=== PATIENT | male | born 1965 | race Hispanic/Latino ===

== ENCOUNTER 2017-09-25 10:16 | Emergency (ER) | payer OTHER ==
[2017-09-25] MEDS ORDERED: Sodium Chloride 0.9% 1,000 ML IV ONE ×3 (10:44→13:33)
[2017-09-25] MEDS ORDERED: Ketorolac 30 MG/ML SDV IVPUSH ONE (10:44)
[2017-09-25] MEDS ORDERED: Piperacillin/Tazobactam 3.375 GM in Sodium Chloride 0.9% 50 ML IV ONE (11:20)
--- NOTE | 2017-09-25 11:31 | EDM.PDOC ---
ED HPI GENERAL MEDICAL PROBLEM - General Chief Complaint: Fever Stated Complaint: LOW BACK PAIN Time Seen by Provider: 09/25/17 10:43 Source of Information: Reports: Patient, Family History Limitations: Reports: No Limitations - History of Present Illness INITIAL COMMENTS - FREE TEXT/NARRATIVE: HISTORY AND PHYSICAL: History of present illness: Patient is a 52-year-old male who is brought to the emergency room by his daughter with complaints of fever, chills and low back pain. Patient is Kazakh speaking and declines Jenny at this time, the daughter is translating. The daughter reports that he recently moved here from [place] as she was taking care of himself there, was recently admitted for respiratory failure and DKA. She states that he moved here to be with her to help take care of him. Over the past 24 hours she has noticed he has been shivering and complaining of low back pain. Denies any headache, cough, chest pain or shortness of breath. He denies any abdominal pain, nausea, vomiting, diarrhea or constipation. He has a past medical history of hypertension, elevated cholesterol, type 2 diabetes (Insulin), congestive heart failure, DKA, and newly diagnosed pancreatic mass. Review of systems: As per history of present illness and below otherwise all systems reviewed and negative. Past medical history: As per history of present illness and as reviewed below otherwise noncontributory. Surgical history: As per history of present illness and as reviewed below otherwise noncontributory. Social history: No reported history of drug or alcohol abuse. Family history: As per history of present illness and as reviewed below otherwise noncontributory. Physical exam: General: Well-developed and well-nourished 52-year-old male. Alert and oriented. Appears mildly unwell but in no acute distress. HEENT: Atraumatic, normocephalic, pupils equal and reactive bilaterally, negative for conjunctival pallor or scleral icterus, mucous membranes moist, throat clear, neck supple, nontender, trachea midline. No drooling or trismus noted. No meningeal signs Lungs: Clear to auscultation, breath sounds equal bilaterally, chest nontender. Heart: S1S2, regular rate and rhythm without overt murmur Abdomen: Soft, nondistended, mild tenderness throughout. Negative for masses or hepatosplenomegaly. Negative for costovertebral tenderness. Pelvis: Stable nontender. Genitourinary: This was done with a chaparone at the bedside and with consent. The external genitalia appears within normal limits. Uncircumsized. There is no erythema, swelling or rashes noted. Rectal: This was done with a chaparone at the bedside and with consent. No hemorrhoids noted. Good rectal tone. Negative for Hemoccult stool. Patient tolerated well. Skin: Intact, warm, dry. No lesions or rashes noted. Extremities: Atraumatic, negative for cords or calf pain. Neurovascular unremarkable. Neuro: Awake, alert, oriented. Cranial nerves II through XII unremarkable. Cerebellum unremarkable. Motor and sensory unremarkable throughout. Exam nonfocal. Notes: Upon getting further history from the patient and daughter it sounds like within the last 3 weeks she has been newly diagnosed with congestive heart failure (placed on diuretics), was admitted with DKA (newly placed on insulin), had a CT scan of this pancreatic mass, and had an infection of his "inside my penis" (completed antibiotics). She states that she has not received the results of the CT scan. He currently does not have a primary care provider as she is new to our area. 1200: WBC is 16.35 (H). Trying to find source of infection. R/o sepsis. 1330: Patient returned from CT/Xray at this time. BP 89/45, states he feels better but would like to eat. Waiting for CT results. BS 39; 1 amp of D50 ordered. 1333: CT shows: Tail of the pancreas with low attenuation suggesting fluid and calcification consistent with prior chronic pancreatitis. He is unable to rule out infection. Dr. Goodrich was consulted on this case. He states this patient would benefit from going to a higher level of care. 1335: Dr. Groves, ER physician, was consulted on this case. He is agreeable to accepting this patient for further evaluation and management. Patient will be flown via [facility] flight crew. Diagnostics: CBC, CMP, Lactic Acid, EKG, CXR, CT abd/pelvis, troponin, BNP, oxygen, blood cultures Therapeutics: NS, Toradol, Zosyn, Vancomycin Impression: Sepsis Possible Pancreatis Abscess Plan: Trasnfer to [place] via Helicopter for further care/management Definitive disposition and diagnosis as appropriate pending reevaluation and review of above. Onset: Today Duration: Day(s): Location: Reports: Back Associated Symptoms: Reports: Fever/Chills. Denies: Confusion, Chest Pain, Cough, cough w sputum, Diaphoresis, Headaches, Loss of Appetite, Malaise, Nausea /Vomiting, Rash, Seizure, Shortness of Breath, Syncope, Weakness Treatments BR[employer]NER: Reports: Other (see below) (Monitoring blood sugar) - Related Data Allergies Allergy/AdvReac Type Severity Reaction Status Date / Time No Known Allergies Allergy Verified 09/25/17 10:38 Home Meds: Home Meds Albuterol [Ventolin HFA] 2 puff IH Q4H 09/25/17 [History] Furosemide 40 mg PO BID 09/25/17 [History] Insulin Detemir [Levemir] 30 unit SUBCUT BEDTIME 09/25/17 [History] Insulin Lispro [Humalog Kwikpen U-100] 8 units SQ TIDMEALS 09/25/17 [History] Isoniazid 300 mg PO DAILY 09/25/17 [History] Pantoprazole Sodium 40 mg PO BID 09/25/17 [History] Pyridoxine HCl [Vitamin B-6] 25 mg PO DAILY 09/25/17 [History] Sucralfate 1 gm PO QID 09/25/17 [History] atorvaSTATin [Lipitor] 40 mg PO DAILY 09/25/17 [History] metFORMIN [Glucophage] 850 mg PO TID 09/25/17 [History] Past Medical History Cardiovascular History: Reports: High Cholesterol, Hypertension Respiratory History: Reports: Other (See Below) Other Respiratory History: recent respiratory failure Gastrointestinal History: Reports: GERD Other Gastrointestinal History: has a pancreatic mass, unknown results of the scan he had done 3 weeks ago. Endocrine/Metabolic History: Reports: Diabetes, Type II - Infectious Disease History Infectious Disease History: Reports: Chicken Pox Social & Family History - Family History Family Medical History: Noncontributory - Tobacco Use Smoking Status *Q: Never Smoker - Caffeine Use Caffeine Use: Reports: None - Recreational Drug Use Recreational Drug Use: No ED ROS GENERAL - Review of Systems Review Of Systems: ROS reveals no pertinent complaints other than HPI. ED EXAM, GENERAL - Physical Exam Exam: See Below (See dictation) Course - Vital Signs Last Recorded V/S: Last Vital Signs Temp 100.0 F 09/25/17 12:25 Pulse 89 09/25/17 12:25 Resp 18 09/25/17 12:25 BP 98/56 L 09/25/17 12:25 Pulse Ox 97 09/25/17 12:25 - Orders/Labs/Meds Orders: Active Orders 24 hr Category Date Time Status EKG Documentation Completion [RC] STAT Care 09/25/17 11:19 Active Oxygen Therapy, ED [RC] ASDIRECTED Care 09/25/17 11:20 Active CULTURE BLOOD [BC] Stat Lab 09/25/17 10:47 Received CULTURE BLOOD [BC] Stat Lab 09/25/17 11:02 Received UA W/MICROSCOPIC [URIN] Stat Lab 09/25/17 10:59 Ordered Sodium Chloride 0.9% [Normal Saline] 1,000 ml Med 09/25/17 11:19 Active IV STAT Sodium Chloride 0.9% [Normal Saline] 1,000 ml Med 09/25/17 13:33 Active IV STAT Vancomycin [Vancocin] 1 gm Med 09/25/17 13:33 Active Sodium Chloride 0.9% [Normal Saline] 250 ml IV ONETIME Blood Culture x2 Reflex Set [OM.PC] Stat Oth 09/25/17 10:44 Ordered Medication Orders Sodium Chloride (Normal Saline) 1,000 mls @ 250 mls/hr IV STAT ONE Stop: 09/25/17 15:18 Last Infusion: 09/25/17 12:15 Dose: 999 mls/hr Admin: 09/25/17 11:43 Dose: 250 mls/hr Sodium Chloride (Normal Saline) 1,000 mls @ 999 mls/hr IV STAT ONE Stop: 09/25/17 14:33 Last Admin: 09/25/17 13:48 Dose: 999 mls/hr Vancomycin HCl 1 gm/ Sodium (Chloride) 250 mls @ 250 mls/hr IV ONETIME ONE Stop: 09/25/17 14:32 Last Admin: 09/25/17 13:47 Dose: 250 mls/hr Labs: Laboratory Tests 09/25/17 09/25/17 09/25/17 Range/Units 10:47 10:47 10:47 WBC 16.35 H (4.0-11.0) K/uL RBC 3.62 L (4.50-5.90) M/uL Hgb 10.4 L (13.0-17.0) g/dL Hct 32.3 L (38.0-50.0) % MCV 89.2 (80.0-98.0) fL MCH 28.7 (27.0-32.0) pg MCHC 32.2 (31.0-37.0) g/dL RDW Std Deviation 49.7 (28.0-62.0) fl RDW Coeff of Randee 15 (11.0-15.0) % Plt Count 304 (150-400) K/uL MPV 10.00 (7.40-12.00) fL Neut % (Auto) 87.5 H (48.0-80.0) % Lymph % (Auto) 8.2 L (16.0-40.0) % Levy % (Auto) 4.0 (0.0-15.0) % Eos % (Auto) 0.2 (0.0-7.0) % Baso % (Auto) 0.1 (0.0-1.5) % Neut # (Auto) 14.3 H (1.4-5.7) K/uL Lymph # (Auto) 1.3 (0.6-2.4) K/uL Levy # (Auto) 0.7 (0.0-0.8) K/uL Eos # (Auto) 0.0 (0.0-0.7) K/uL Baso # (Auto) 0.0 (0.0-0.1) K/uL Nucleated RBC % 0.0 /100WBC Nucleated RBCs # 0 K/uL Lactate 1.8 (0.20-2.00) mmol/L Sodium 134 L (136-148) mmol/L Potassium 5.2 H (3.5-5.1) mmol/L Chloride 97 L (98-107) mmol/L Carbon Dioxide 30.6 (21.0-32.0) mmol/L BUN 25 H (7.0-18.0) mg/dL Creatinine 1.0 (0.8-1.3) mg/dL Est Cr Clr Drug Dosing 70.71 mL/min Estimated GFR (MDRD) > 60.0 ml/min Glucose 236 H (74-106) mg/dL POC Glucose (60-110) mg/dL Calcium 8.3 L (8.5-10.1) mg/dL Total Bilirubin 0.3 (0.2-1.0) mg/dL AST 39 H (15-37) IU/L ALT 61 (14-63) IU/L Alkaline Phosphatase 145 H (46-116) U/L Troponin I (0.000-0.056) ng/mL B-Natriuretic Peptide (<100) PG/ML Total Protein 6.6 (6.4-8.2) g/dL Albumin 2.7 L (3.4-5.0) g/dL Globulin 3.9 H (2.0-3.5) g/dL Albumin/Globulin Ratio 0.7 L (1.3-2.8) Amylase (25-115) U/L Lipase (73-393) U/L Urine Color Urine Appearance Urine pH (5.0-8.0) Ur Specific Range (1.001-1.035) Urine Protein (NEGATIVE) mg/dL Urine Glucose (UA) (NEGATIVE) mg/dL Urine Ketones (NEGATIVE) mg/dL Urine Occult Blood (NEGATIVE) Urine Nitrite (NEGATIVE) Urine Bilirubin (NEGATIVE) Urine Urobilinogen (<2.0) EU/dL Ur Leukocyte Esterase (NEGATIVE) Urine RBC (0-2/HPF) Urine WBC (0-5/HPF) Ur Epithelial Cells (NONE-FEW) Urine Bacteria (NEGATIVE) 09/25/17 09/25/17 09/25/17 Range/Units 10:47 10:47 10:59 WBC (4.0-11.0) K/uL RBC (4.50-5.90) M/uL Hgb (13.0-17.0) g/dL Hct (38.0-50.0) % MCV (80.0-98.0) fL MCH (27.0-32.0) pg MCHC (31.0-37.0) g/dL RDW Std Deviation (28.0-62.0) fl RDW Coeff of Randee (11.0-15.0) % Plt Count (150-400) K/uL MPV (7.40-12.00) fL Neut % (Auto) (48.0-80.0) % Lymph % (Auto) (16.0-40.0) % Levy % (Auto) (0.0-15.0) % Eos % (Auto) (0.0-7.0) % Baso % (Auto) (0.0-1.5) % Neut # (Auto) (1.4-5.7) K/uL Lymph # (Auto) (0.6-2.4) K/uL Levy # (Auto) (0.0-0.8) K/uL Eos # (Auto) (0.0-0.7) K/uL Baso # (Auto) (0.0-0.1) K/uL Nucleated RBC % /100WBC Nucleated RBCs # K/uL Lactate (0.20-2.00) mmol/L Sodium (136-148) mmol/L Potassium (3.5-5.1) mmol/L Chloride (98-107) mmol/L Carbon Dioxide (21.0-32.0) mmol/L BUN (7.0-18.0) mg/dL Creatinine (0.8-1.3) mg/dL Est Cr Clr Drug Dosing mL/min Estimated GFR (MDRD) ml/min Glucose (74-106) mg/dL POC Glucose (60-110) mg/dL Calcium (8.5-10.1) mg/dL Total Bilirubin (0.2-1.0) mg/dL AST (15-37) IU/L ALT (14-63) IU/L Alkaline Phosphatase (46-116) U/L Troponin I < 0.050 (0.000-0.056) ng/mL B-Natriuretic Peptide 182 H (<100) PG/ML Total Protein (6.4-8.2) g/dL Albumin (3.4-5.0) g/dL Globulin (2.0-3.5) g/dL Albumin/Globulin Ratio (1.3-2.8) Amylase 93 (25-115) U/L Lipase 77 (73-393) U/L Urine Color YELLOW Urine Appearance CLEAR Urine pH 7.0 (5.0-8.0) Ur Specific Range 1.010 (1.001-1.035) Urine Protein NEGATIVE (NEGATIVE) mg/dL Urine Glucose (UA) NEGATIVE (NEGATIVE) mg/dL Urine Ketones NEGATIVE (NEGATIVE) mg/dL Urine Occult Blood NEGATIVE (NEGATIVE) Urine Nitrite NEGATIVE (NEGATIVE) Urine Bilirubin NEGATIVE (NEGATIVE) Urine Urobilinogen 0.2 (<2.0) EU/dL Ur Leukocyte Esterase NEGATIVE (NEGATIVE) Urine RBC 0-1 (0-2/HPF) Urine WBC 0-1 (0-5/HPF) Ur Epithelial Cells RARE (NONE-FEW) Urine Bacteria RARE (NEGATIVE) 09/25/17 Range/Units 13:35 WBC (4.0-11.0) K/uL RBC (4.50-5.90) M/uL Hgb (13.0-17.0) g/dL Hct (38.0-50.0) % MCV (80.0-98.0) fL MCH (27.0-32.0) pg MCHC (31.0-37.0) g/dL RDW Std Deviation (28.0-62.0) fl RDW Coeff of Randee (11.0-15.0) % Plt Count (150-400) K/uL MPV (7.40-12.00) fL Neut % (Auto) (48.0-80.0) % Lymph % (Auto) (16.0-40.0) % Levy % (Auto) (0.0-15.0) % Eos % (Auto) (0.0-7.0) % Baso % (Auto) (0.0-1.5) % Neut # (Auto) (1.4-5.7) K/uL Lymph # (Auto) (0.6-2.4) K/uL Levy # (Auto) (0.0-0.8) K/uL Eos # (Auto) (0.0-0.7) K/uL Baso # (Auto) (0.0-0.1) K/uL Nucleated RBC % /100WBC Nucleated RBCs # K/uL Lactate (0.20-2.00) mmol/L Sodium (136-148) mmol/L Potassium (3.5-5.1) mmol/L Chloride (98-107) mmol/L Carbon Dioxide (21.0-32.0) mmol/L BUN (7.0-18.0) mg/dL Creatinine (0.8-1.3) mg/dL Est Cr Clr Drug Dosing mL/min Estimated GFR (MDRD) ml/min Glucose (74-106) mg/dL POC Glucose 39 L (60-110) mg/dL Calcium (8.5-10.1) mg/dL Total Bilirubin (0.2-1.0) mg/dL AST (15-37) IU/L ALT (14-63) IU/L Alkaline Phosphatase (46-116) U/L Troponin I (0.000-0.056) ng/mL B-Natriuretic Peptide (<100) PG/ML Total Protein (6.4-8.2) g/dL Albumin (3.4-5.0) g/dL Globulin (2.0-3.5) g/dL Albumin/Globulin Ratio (1.3-2.8) Amylase (25-115) U/L Lipase (73-393) U/L Urine Color Urine Appearance Urine pH (5.0-8.0) Ur Specific Range (1.001-1.035) Urine Protein (NEGATIVE) mg/dL Urine Glucose (UA) (NEGATIVE) mg/dL Urine Ketones (NEGATIVE) mg/dL Urine Occult Blood (NEGATIVE) Urine Nitrite (NEGATIVE) Urine Bilirubin (NEGATIVE) Urine Urobilinogen (<2.0) EU/dL Ur Leukocyte Esterase (NEGATIVE) Urine RBC (0-2/HPF) Urine WBC (0-5/HPF) Ur Epithelial Cells (NONE-FEW) Urine Bacteria (NEGATIVE) Meds: Medications Generic Name Dose Route Start Last Admin Trade Name Freq PRN Reason Stop Dose Admin Sodium Chloride 1,000 mls @ 250 mls/hr 09/25/17 11:19 09/25/17 12:15 Normal Saline IV 09/25/17 15:18 999 mls/hr STAT ONE Infusion Sodium Chloride 1,000 mls @ 999 mls/hr 09/25/17 13:33 09/25/17 13:48 Normal Saline IV 09/25/17 14:33 999 mls/hr STAT ONE Administration Vancomycin HCl 1 gm/ Sodium 250 mls @ 250 mls/hr 09/25/17 13:33 09/25/17 13: 47 Chloride IV 09/25/17 14:32 250 mls/hr ONETIME ONE Administration Discontinued Medications Generic Name Dose Route Start Last Admin Trade Name Freq PRN Reason Stop Dose Admin Dextrose/Water 50 ml 09/25/17 13:36 09/25/17 13:38 Dextrose 50% In Water IVPUSH 09/25/17 13:37 50 ml ONETIME ONE Administration Dextrose/Water Confirm 09/25/17 13:37 09/25/17 13:48 Dextrose 50% In Water Administered 09/25/17 13:38 Not Given Dose 50 ml .ROUTE .STK-MED ONE Sodium Chloride 1,000 mls @ 999 mls/hr 09/25/17 10:44 09/25/17 10:58 Normal Saline IV 09/25/17 11:44 999 mls/hr STAT ONE Administration Piperacillin Sod/Tazobactam 50 mls @ 100 mls/hr 09/25/17 11:20 09/25/17 11:43 Sod 3.375 gm/ Sodium Chloride IV 09/25/17 11:49 100 mls/hr ONETIME ONE Administration Ketorolac Tromethamine 30 mg 09/25/17 10:44 09/25/17 10:58 Toradol IVPUSH 09/25/17 10:45 30 mg ONETIME ONE Administration Departure - Departure Time of Disposition: 14:02 Disposition: DC/Tfer to Other 70 Clinical Impression: Pancreatic abscess Sepsis Qualifiers: Sepsis type: sepsis due to unspecified organism Qualified Code(s): A41.9 - Sepsis, unspecified organism - Discharge Information Referrals: PCP,None [Primary Care Provider] - Forms: ED Department Discharge - My Orders Last 24 Hours: My Active Orders 09/25/17 10:44 Blood Culture x2 Reflex Set [OM.PC] Stat 09/25/17 10:47 CULTURE BLOOD [BC] Stat 09/25/17 10:59 UA W/MICROSCOPIC [URIN] Stat 09/25/17 11:02 CULTURE BLOOD [BC] Stat 09/25/17 11:19 EKG Documentation Completion [RC] STAT Sodium Chloride 0.9% [Normal Saline] 1,000 ml IV STAT 09/25/17 11:20 Oxygen Therapy, ED [RC] ASDIRECTED 09/25/17 13:33 Sodium Chloride 0.9% [Normal Saline] 1,000 ml IV STAT Vancomycin [Vancocin] 1 gm Sodium Chloride 0.9% [Normal Saline] 250 ml IV ONETIME - Assessment/Plan Last 24 Hours: My Active Orders 09/25/17 10:44 Blood Culture x2 Reflex Set [OM.PC] Stat 09/25/17 10:47 CULTURE BLOOD [BC] Stat 09/25/17 10:59 UA W/MICROSCOPIC [URIN] Stat 09/25/17 11:02 CULTURE BLOOD [BC] Stat 09/25/17 11:19 EKG Documentation Completion [RC] STAT Sodium Chloride 0.9% [Normal Saline] 1,000 ml IV STAT 09/25/17 11:20 Oxygen Therapy, ED [RC] ASDIRECTED 09/25/17 13:33 Sodium Chloride 0.9% [Normal Saline] 1,000 ml IV STAT Vancomycin [Vancocin] 1 gm Sodium Chloride 0.9% [Normal Saline] 250 ml IV ONETIME
[2017-09-25 11:55] LABS: CHLORIDE,CL 97 mmol/L (98-107); SODIUM,NA 134 mmol/L (136-148)
--- NOTE | 2017-09-25 13:33 | CR ---
PA and lateral chest Clinical history: Shortness of breath Comparison: None. Findings: The gastric angles are clear. The cardiac mediastinal is normal and the lungs are clear. Impression: Normal chest
[2017-09-25] MEDS ORDERED: 50% Dextrose in Water 50 ML Syringe IVPUSH ONE (13:36)
[2017-09-25] MEDS ORDERED: 50% Dextrose in Water 50 ML Syringe ONE (13:37)
--- NOTE | 2017-09-25 13:44 | CT ---
ET scan of the abdomen and pelvis Clinical history: Fever of 103 with back pain Comparison: None. Findings: The lung bases are clear of significant consolidation with minor crowding of markings at the lung bas es posteromedially bilaterally. The liver demonstrates a prominent cyst in the right hepatic lobe of no consequence. Gallbladder is i n situ without calcified stones visible and the pancreas demonstrates some calcifications distally in the tail of the pancreas likely reflecting prior pancreatitis. The gland is swollen at the tail and there is an area within this region of low density suggesting fluid. There is no dilation of the panc reatic duct. No significant edema is present around the pancreas, but abscess is not excluded. The fl uid collection does not have a mature border to suggest a pseudocyst. The kidneys are within normal limits and retroperitoneum is normal. No bowel abnormality is identifie d. Grass getting to low abdomen into the pelvis demonstrates no pelvic mass or fluid collection. Sple en is normal. Skeletal images demonstrate no aggressive bony lesions. There is degenerative arthropathy of the lowe r lumbar spine. Impression: Swollen tail of the pancreas with low attenuation suggesting fluid and calcifications con sistent with prior chronic pancreatitis. Infection is not excluded. No other source of back pain iden tified. A pancreatic cystadenoma or cystadenocarcinoma could have a similar appearance/correlate clin ically
[2017-09-25] MEDS ORDERED: Iopamidol 755 MG/ML 500 ML Multipack Bottle IVPUSH STA (17:06)
== END 2017-09-25 15:10 | disposition other institution (70) ==
LOC: MW.ED 10:16
DX: A41.9 Sepsis, unspecified organism (principal); K85.90 Acute pancreatitis without necrosis or infection, unspecified; I11.0 Hypertensive heart disease with heart failure; E78.00 Pure hypercholesterolemia, unspecified; I50.9 Heart failure, unspecified; E11.9 Type 2 diabetes mellitus without complications; Z79.4 Long term (current) use of insulin
CPT/HCPCS: 71046; 74178; 80053; 81001; 82150; 82962; 83605; 83690; 83880; 84484; 85025; 87040; 93005; 96361; 96365; 96375; 99285; J1885; J2543; J3370; J7040; J7050; J7060; Q9967

== ENCOUNTER 2017-10-05 19:32 | Observation (INO) | payer MEDICAID, OTHER ==
[2017-10-05] MEDS ORDERED: Aspirin 81 MG Tab.Chew PO ONE (19:56)
--- NOTE | 2017-10-05 19:58 | EDM.PDOC ---
ED HPI GENERAL MEDICAL PROBLEM - General Chief Complaint: Respiratory Problem Stated Complaint: COUGH Time Seen by Provider: 10/05/17 19:50 Source of Information: Reports: Patient - History of Present Illness INITIAL COMMENTS - FREE TEXT/NARRATIVE: HISTORY AND PHYSICAL: History of present illness: [He is primarily Danish-speaking, and daughter serves as senior [employer] network engineer. Comes to the emergency room complaining of pain to his mid chest and mid back for the past 2 days. He feels weaker than usual and has had some episodes of dizziness. He denies falls. He describes a heavy feeling in the center of his chest and shortness of breath. He does not have any difficulty breathing or taking a deep breath. He he moved to the area within the past month with diagnoses of hypertension, hypercholesterolemia, and was newly diagnosed with insulin- dependent type 2 diabetes, CHF and a pancreatic mass. was hospitalized in [place] approximately one week ago for sepsis and a possible pancreatic abscess. Daughter reports that he was evaluated approximately 3 weeks ago for cough and sputum production was not started on any treatment. In the last couple of days he received a phone call from a clinic in [place] reporting that his sputum grew out gram-positive cocci in pairs and clusters. He has not been treated for this with any antibiotics. Daughter reports a history of latent tuberculosis. Was diagnosed w/ a pancreatic mass recently. He is scheduled to see oncology in the next couple of weeks. DeniesFever or chills. No recent URI symptoms. No abd pain, nausea, vomiting, constipation or diarrhea. Denies blood in his urine and difficulty urinating. No blood in his stool or black tarry stools. Urination and bowel movements are normal. Review of systems: As per history of present illness and below otherwise all systems reviewed and negative. Past medical history: As per history of present illness and as reviewed below otherwise noncontributory. Surgical history: As per history of present illness and as reviewed below otherwise noncontributory. Social history: No reported history of drug or alcohol abuse. Family history: As per history of present illness and as reviewed below otherwise noncontributory. Physical exam: HEENT: Atraumatic, normocephalic. PERRLA. Oral mucous membranes are pink and moist. Neck supple, no lymphadenopathy. Lungs: Clear to auscultation, breath sounds equal bilaterally. Heart: S1S2, regular, negative for clicks, rubs, or JVD. Rate 105 Abdomen: Bowel sounds are normoactive throughout. Soft, nondistended, nontender. Negative for masses. Negative for costovertebral tenderness. Pelvis: Stable nontender. Genitourinary: Deferred. Rectal: Sphincter tone. Brown stool in colon. SFOB Negative Extremities: Atraumatic, no swelling present. Neurovascular unremarkable. Neuro: Awake, alert, oriented. Motor and sensory unremarkable throughout. Exam nonfocal. Diagnostics: [CBC, CMP, urinalysis, chest x-ray, sputum culture, troponin] Impression: [symptomatic anemia] Plan: [Chest x-ray shows no infiltrates or abnormalities. Hemoglobin 8.7. White blood cell 11.2. Troponin is negative. BUN 43, creatinine 1.5. Patient's condition is discussed with Dr. Charlene Sanon who agrees to palpation and for observation with telemetry. The patient and his daughter are in agreement with today's plan.] Definitive disposition and diagnosis as appropriate pending reevaluation and review of above. chest Pain Score (Numeric/FACES): 6 - Related Data Allergies Allergy/AdvReac Type Severity Reaction Status Date / Time No Known Allergies Allergy Verified 10/05/17 19:50 Home Meds: Home Meds Albuterol [Ventolin HFA] 2 puff IH Q4H 09/25/17 [History] Furosemide 40 mg PO BID 09/25/17 [History] Insulin Detemir [Levemir] 30 unit SUBCUT BEDTIME 09/25/17 [History] Insulin Lispro [Humalog Kwikpen U-100] 8 units SQ TIDMEALS 09/25/17 [History] Isoniazid 300 mg PO DAILY 09/25/17 [History] Pantoprazole Sodium 40 mg PO BID 09/25/17 [History] Pyridoxine HCl [Vitamin B-6] 25 mg PO DAILY 09/25/17 [History] Sucralfate 1 gm PO QID 09/25/17 [History] atorvaSTATin [Lipitor] 40 mg PO DAILY 09/25/17 [History] metFORMIN [Glucophage] 850 mg PO TID 09/25/17 [History] Past Medical History Cardiovascular History: Reports: High Cholesterol, Hypertension, Other (See Below) Other Cardiovascular History: CHF Respiratory History: Reports: Other (See Below) Other Respiratory History: recent respiratory failure Gastrointestinal History: Reports: GERD Other Gastrointestinal History: has a pancreatic mass, unknown results of the scan he had done 3 weeks ago. Endocrine/Metabolic History: Reports: Diabetes, Type II - Infectious Disease History Infectious Disease History: Reports: Chicken Pox Social & Family History - Family History Family Medical History: Noncontributory - Tobacco Use Smoking Status *Q: Never Smoker - Caffeine Use Caffeine Use: Reports: None - Recreational Drug Use Recreational Drug Use: No ED ROS GENERAL - Review of Systems Review Of Systems: ROS reveals no pertinent complaints other than HPI. ED EXAM, GENERAL - Physical Exam Exam: See Below Course - Vital Signs Last Recorded V/S: Last Vital Signs Temp 98.9 F 10/05/17 21:17 Pulse 107 H 10/05/17 21:17 Resp 17 10/05/17 21:17 BP 139/82 10/05/17 21:17 Pulse Ox 97 10/05/17 21:17 - Orders/Labs/Meds Orders: Active Orders 24 hr Category Date Time Status Orthostatic Vital Signs [RC] ASDIRECTED Care 10/05/17 21:38 Active Chest 2V [CR] Stat Exams 10/05/17 19:56 Taken CULTURE SPUTUM + SMEAR [RM] Stat Lab 10/05/17 20:04 Ordered Labs: Laboratory Tests 10/05/17 10/05/17 Range/Units 20:10 20:10 WBC 11.26 H (4.0-11.0) K/uL RBC 2.97 L (4.50-5.90) M/uL Hgb 8.7 L (13.0-17.0) g/dL Hct 26.7 L (38.0-50.0) % MCV 89.9 (80.0-98.0) fL MCH 29.3 (27.0-32.0) pg MCHC 32.6 (31.0-37.0) g/dL RDW Std Deviation 48.9 (28.0-62.0) fl RDW Coeff of [place] 15 (11.0-15.0) % Plt Count 422 H (150-400) K/uL MPV 9.50 (7.40-12.00) fL Neut % (Auto) 63.7 (48.0-80.0) % Lymph % (Auto) 27.6 (16.0-40.0) % [place] % (Auto) 6.9 (0.0-15.0) % Eos % (Auto) 1.5 (0.0-7.0) % Baso % (Auto) 0.3 (0.0-1.5) % Neut # (Auto) 7.2 H (1.4-5.7) K/uL Lymph # (Auto) 3.1 H (0.6-2.4) K/uL [place] # (Auto) 0.8 (0.0-0.8) K/uL Eos # (Auto) 0.2 (0.0-0.7) K/uL Baso # (Auto) 0.0 (0.0-0.1) K/uL Nucleated RBC % 0.0 /100WBC Nucleated RBCs # 0 K/uL Sodium 137 (136-148) mmol/L Potassium 4.6 (3.5-5.1) mmol/L Chloride 102 (98-107) mmol/L Carbon Dioxide 25.6 (21.0-32.0) mmol/L BUN 43 H (7.0-18.0) mg/dL Creatinine 1.5 H (0.8-1.3) mg/dL Est Cr Clr Drug Dosing 47.14 mL/min Estimated GFR (MDRD) 48.8 ml/min Glucose 133 H (74-106) mg/dL Calcium 8.4 L (8.5-10.1) mg/dL Total Bilirubin 0.1 L (0.2-1.0) mg/dL AST 16 (15-37) IU/L ALT 27 (14-63) IU/L Alkaline Phosphatase 109 (46-116) U/L Troponin I < 0.050 (0.000-0.056) ng/mL Total Protein 7.4 (6.4-8.2) g/dL Albumin 2.4 L (3.4-5.0) g/dL Globulin 5.0 H (2.0-3.5) g/dL Albumin/Globulin Ratio 0.5 L (1.3-2.8) Meds: Medications Discontinued Medications Generic Name Dose Route Start Last Admin Trade Name Freq PRN Reason Stop Dose Admin Aspirin 324 mg 10/05/17 19:56 10/05/17 20:05 Aspirin PO 10/05/17 19:57 324 mg ONETIME ONE Administration Departure - Departure Time of Disposition: 21:40 Disposition: Refer to Observation Condition: Good Clinical Impression: Anemia - Discharge Information - My Orders Last 24 Hours: My Active Orders 10/05/17 19:56 Chest 2V [CR] Stat 10/05/17 20:04 CULTURE SPUTUM + SMEAR [RM] Stat 10/05/17 21:38 Orthostatic Vital Signs [RC] ASDIRECTED - Assessment/Plan Last 24 Hours: My Active Orders 10/05/17 19:56 Chest 2V [CR] Stat 10/05/17 20:04 CULTURE SPUTUM + SMEAR [RM] Stat 10/05/17 21:38 Orthostatic Vital Signs [RC] ASDIRECTED
[2017-10-05 20:53] LABS: CHLORIDE,CL 102 mmol/L (98-107); SODIUM,NA 137 mmol/L (136-148)
[2017-10-05] MEDS ORDERED: Pantoprazole 40 MG Vial IVPUSH ONE (23:57)
[2017-10-05] MEDS ORDERED: Alum Hydrox/Mag Hydrox/Simeth 15 ML, Lidocaine 2% 5 ML PO ONE ×2 (23:57)
[2017-10-06] MEDS ORDERED: Ondansetron 4 MG Tab.DIS PO PRN
[2017-10-06 02:43] LABS: CHLORIDE,CL 103 mmol/L (98-107); SODIUM,NA 137 mmol/L (136-148)
[2017-10-06] MEDS ORDERED: Acetaminophen 325 MG Tab PO PRN (03:26)
[2017-10-06] MEDS: Sodium Chloride 0.9% 1,000 ML IV SCH ×2 (04:57→11:43)
[2017-10-06] MEDS: Insulin Aspart 100 Units/ML 3 ML Pen SUBCUT SCH ×2 (07:49→12:20)
--- NOTE | 2017-10-06 09:18 | PCM.HP ---
H&P History of Present Illness - General Date of Service: 10/06/17 Admit Problem/Dx: Admission Diagnosis/Problem Admission Diagnosis/Problem Anemia Source of Information: Patient, Family History Limitations: Reports: Language Barrier - History of Present Illness Initial Comments - Free Text/Narative: This is a 52M with a past hx of recent episode of DKA, incidentally found pancreatic mass on CT requiring further work up, that presents to the ER complaining of chest tightness x3 days as per daughter. Also has a past hx of HLD, Latent TB, GERD. Pain was located centrally, non-radiating, worsened with a breath. No fever chills nausea or vomiting. No recent illnesses. No new medications. At the time of evaluation, his symptoms have improved significantly , stating that the left side of his chest is mildly tender if i was to push on it. ER Course: CBC - normocytic anemia Hgb 8.7, transfused 1 unit, recheck Hgb 9.0. Leukocytosis 11k CMP - EVONNE Cr 1.5 CXR - unremarkable Troponin x2 negative. EKG NSR chest Pain Score (Numeric/FACES): 0 - Related Data Allergies/Adverse Reactions: Allergies Allergy/AdvReac Type Severity Reaction Status Date / Time No Known Allergies Allergy Verified 10/05/17 19:50 Home Medications: Home Meds Albuterol [Ventolin HFA] 2 puff IH Q4H 09/25/17 [History] Furosemide 40 mg PO BID 09/25/17 [History] Insulin Detemir [Levemir] 30 unit SUBCUT BEDTIME 09/25/17 [History] Insulin Lispro [Humalog Kwikpen U-100] 8 units SQ TIDMEALS 09/25/17 [History] Isoniazid 300 mg PO DAILY 09/25/17 [History] Pantoprazole Sodium 40 mg PO BID 09/25/17 [History] Pyridoxine HCl [Vitamin B-6] 25 mg PO DAILY 09/25/17 [History] Sucralfate 1 gm PO QID 09/25/17 [History] atorvaSTATin [Lipitor] 40 mg PO DAILY 09/25/17 [History] metFORMIN [Glucophage] 850 mg PO TID 09/25/17 [History] Past Medical History Cardiovascular History: Reports: High Cholesterol, Hypertension, Other (See Below) Other Cardiovascular History: CHF Respiratory History: Reports: Other (See Below) Other Respiratory History: recent respiratory failure Gastrointestinal History: Reports: GERD Other Gastrointestinal History: has a pancreatic mass, unknown results of the scan he had done 3 weeks ago. Endocrine/Metabolic History: Reports: Diabetes, Type II - Infectious Disease History Infectious Disease History: Reports: Chicken Pox Social & Family History - Family History Family Medical History: Noncontributory - Tobacco Use Smoking Status *Q: Never Smoker Second Hand Smoke Exposure: No - Caffeine Use Caffeine Use: Reports: Coffee - Recreational Drug Use Recreational Drug Use: No H&P Review of Systems - Review of Systems: Review Of Systems: See Below General: Reports: No Symptoms HEENT: Reports: No Symptoms Pulmonary: Reports: Pleuritic Chest Pain Cardiovascular: Reports: No Symptoms, Chest Pain Gastrointestinal: Reports: No Symptoms Genitourinary: Reports: No Symptoms Musculoskeletal: Reports: No Symptoms Skin: Reports: No Symptoms Psychiatric: Reports: No Symptoms Neurological: Reports: No Symptoms Hematologic/Lymphatic: Reports: No Symptoms Immunologic: Reports: No Symptoms Exam - Exam Exam: See Below - Vital Signs Vital Signs: Last Vital Signs Temp 36.6 C 10/06/17 05:53 Pulse 94 10/06/17 05:53 Resp 20 10/06/17 05:53 BP 138/84 10/06/17 05:53 Pulse Ox 97 10/06/17 05:53 Orthostatic Blood Pressure [ 125/75 Standing] Orthostatic Blood Pressure [ 131/81 Sitting] Orthostatic Blood Pressure [ 141/82 Supine] Weight: 69.989 kg - Exam General: Alert, Oriented, Cooperative HEENT: Conjunctiva Clear, EACs Clear, EOMI, Hearing Intact, Mucosa Moist & [place] Neck: Supple, Trachea Midline, 2 Lungs: Clear to Auscultation, Normal Respiratory Effort, Other (reproducible chest pain on palpation over the right side) Cardiovascular: Regular Rate, Regular Rhythm GI/Abdominal Exam: Normal Bowel Sounds, Soft, Non-Tender, No Organomegaly, No Distention, No Abnormal Bruit, No Mass Back Exam: Normal Inspection, Full Range of Motion, NT Extremities: Normal Inspection, Normal Range of Motion, Non-Tender, No Pedal Edema, Normal Capillary Refill Peripheral Pulses: 2+: Posterior Tibial (R), Dorsalis Pedis (L) Skin: Warm, Dry, Intact Neurological: Cranial Nerves Intact, Reflexes Equal Bilateral Neuro Extensive - Mental Status: Alert, Oriented x3, Normal Mood/Affect, Normal Cognition Neuro Extensive - Motor, Sensory, Reflexes: CN II-XII Intact, Normal Gait, Normal Reflexes Psychiatric: Alert, Normal Affect, Normal Mood - Patient Data Lab Results Last 24 hrs: Laboratory Results - last 24 hr 10/05/17 10/05/17 10/05/17 Range/Units 20:10 20:10 22:10 WBC 11.26 H (4.0-11.0) K/uL RBC 2.97 L (4.50-5.90) M/uL Hgb 8.7 L (13.0-17.0) g/dL Hct 26.7 L (38.0-50.0) % MCV 89.9 (80.0-98.0) fL MCH 29.3 (27.0-32.0) pg MCHC 32.6 (31.0-37.0) g/dL RDW Std Deviation 48.9 (28.0-62.0) fl RDW Coeff of Randee 15 (11.0-15.0) % Plt Count 422 H (150-400) K/uL MPV 9.50 (7.40-12.00) fL Neut % (Auto) 63.7 (48.0-80.0) % Lymph % (Auto) 27.6 (16.0-40.0) % [place] % (Auto) 6.9 (0.0-15.0) % Eos % (Auto) 1.5 (0.0-7.0) % Baso % (Auto) 0.3 (0.0-1.5) % Neut # (Auto) 7.2 H (1.4-5.7) K/uL Lymph # (Auto) 3.1 H (0.6-2.4) K/uL [place] # (Auto) 0.8 (0.0-0.8) K/uL Eos # (Auto) 0.2 (0.0-0.7) K/uL Baso # (Auto) 0.0 (0.0-0.1) K/uL Nucleated RBC % 0.0 /100WBC Nucleated RBCs # 0 K/uL D-Dimer, Quantitative (0.0-0.52) mg/LFEU Sodium 137 (136-148) mmol/L Potassium 4.6 (3.5-5.1) mmol/L Chloride 102 (98-107) mmol/L Carbon Dioxide 25.6 (21.0-32.0) mmol/L BUN 43 H (7.0-18.0) mg/dL Creatinine 1.5 H (0.8-1.3) mg/dL Est Cr Clr Drug Dosing 47.14 mL/min Estimated GFR (MDRD) 48.8 ml/min Glucose 133 H (74-106) mg/dL POC Glucose (60-110) mg/dL Calcium 8.4 L (8.5-10.1) mg/dL Total Bilirubin 0.1 L (0.2-1.0) mg/dL AST 16 (15-37) IU/L ALT 27 (14-63) IU/L Alkaline Phosphatase 109 (46-116) U/L Troponin I < 0.050 (0.000-0.056) ng/mL Total Protein 7.4 (6.4-8.2) g/dL Albumin 2.4 L (3.4-5.0) g/dL Globulin 5.0 H (2.0-3.5) g/dL Albumin/Globulin Ratio 0.5 L (1.3-2.8) Lipase (73-393) U/L Urine Color Urine Appearance Urine pH (5.0-8.0) Ur Specific [place] (1.001-1.035) Urine Protein (NEGATIVE) mg/dL Urine Glucose (UA) (NEGATIVE) mg/dL Urine Ketones (NEGATIVE) mg/dL Urine Occult Blood (NEGATIVE) Urine Nitrite (NEGATIVE) Urine Bilirubin (NEGATIVE) Urine Urobilinogen (<2.0) EU/dL Ur Leukocyte Esterase (NEGATIVE) Urine RBC (0-2/HPF) Urine WBC (0-5/HPF) Ur Epithelial Cells (NONE-FEW) Urine Bacteria (NEGATIVE) Urine Mucus (NONE-MOD) Blood Type A POSITIVE Antibody Screen NEGATIVE Crossmatch See Detail 10/06/17 10/06/17 10/06/17 Range/Units 01:04 02:11 02:11 WBC (4.0-11.0) K/uL RBC (4.50-5.90) M/uL Hgb (13.0-17.0) g/dL Hct (38.0-50.0) % MCV (80.0-98.0) fL MCH (27.0-32.0) pg MCHC (31.0-37.0) g/dL RDW Std Deviation (28.0-62.0) fl RDW Coeff of [place] (11.0-15.0) % Plt Count (150-400) K/uL MPV (7.40-12.00) fL Neut % (Auto) (48.0-80.0) % Lymph % (Auto) (16.0-40.0) % [place] % (Auto) (0.0-15.0) % Eos % (Auto) (0.0-7.0) % Baso % (Auto) (0.0-1.5) % Neut # (Auto) (1.4-5.7) K/uL Lymph # (Auto) (0.6-2.4) K/uL [place] # (Auto) (0.0-0.8) K/uL Eos # (Auto) (0.0-0.7) K/uL Baso # (Auto) (0.0-0.1) K/uL Nucleated RBC % /100WBC Nucleated RBCs # K/uL D-Dimer, Quantitative (0.0-0.52) mg/LFEU Sodium 137 (136-148) mmol/L Potassium 4.4 (3.5-5.1) mmol/L Chloride 103 (98-107) mmol/L Carbon Dioxide 26.4 (21.0-32.0) mmol/L BUN 40 H (7.0-18.0) mg/dL Creatinine 1.2 (0.8-1.3) mg/dL Est Cr Clr Drug Dosing 58.93 mL/min Estimated GFR (MDRD) > 60.0 ml/min Glucose 205 H (74-106) mg/dL POC Glucose (60-110) mg/dL Calcium 8.2 L (8.5-10.1) mg/dL Total Bilirubin (0.2-1.0) mg/dL AST (15-37) IU/L ALT (14-63) IU/L Alkaline Phosphatase (46-116) U/L Troponin I < 0.050 (0.000-0.056) ng/mL Total Protein (6.4-8.2) g/dL Albumin (3.4-5.0) g/dL Globulin (2.0-3.5) g/dL Albumin/Globulin Ratio (1.3-2.8) Lipase 88 (73-393) U/L Urine Color YELLOW Urine Appearance CLEAR Urine pH 5.5 (5.0-8.0) Ur Specific [place] <= 1.005 (1.001-1.035) Urine Protein NEGATIVE (NEGATIVE) mg/dL Urine Glucose (UA) 250 H (NEGATIVE) mg/dL Urine Ketones NEGATIVE (NEGATIVE) mg/dL Urine Occult Blood NEGATIVE (NEGATIVE) Urine Nitrite NEGATIVE (NEGATIVE) Urine Bilirubin NEGATIVE (NEGATIVE) Urine Urobilinogen 0.2 (<2.0) EU/dL Ur Leukocyte Esterase NEGATIVE (NEGATIVE) Urine RBC 0-1 (0-2/HPF) Urine WBC 0-1 (0-5/HPF) Ur Epithelial Cells NOT SEEN (NONE-FEW) Urine Bacteria RARE (NEGATIVE) Urine Mucus LIGHT (NONE-MOD) Blood Type Antibody Screen Crossmatch 10/06/17 10/06/17 10/06/17 Range/Units 05:50 05:50 06:26 WBC 9.01 (4.0-11.0) K/uL RBC 3.18 L (4.50-5.90) M/uL Hgb 9.0 L (13.0-17.0) g/dL Hct 28.0 L (38.0-50.0) % MCV 88.1 (80.0-98.0) fL MCH 28.3 (27.0-32.0) pg MCHC 32.1 (31.0-37.0) g/dL RDW Std Deviation 47.5 (28.0-62.0) fl RDW Coeff of [place] 15 (11.0-15.0) % Plt Count 379 (150-400) K/uL MPV 9.30 (7.40-12.00) fL Neut % (Auto) 58.8 (48.0-80.0) % Lymph % (Auto) 32.1 (16.0-40.0) % [place] % (Auto) 7.2 (0.0-15.0) % Eos % (Auto) 1.6 (0.0-7.0) % Baso % (Auto) 0.3 (0.0-1.5) % Neut # (Auto) 5.3 (1.4-5.7) K/uL Lymph # (Auto) 2.9 H (0.6-2.4) K/uL [place] # (Auto) 0.7 (0.0-0.8) K/uL Eos # (Auto) 0.1 (0.0-0.7) K/uL Baso # (Auto) 0.0 (0.0-0.1) K/uL Nucleated RBC % 0.0 /100WBC Nucleated RBCs # 0 K/uL D-Dimer, Quantitative 1.27 H (0.0-0.52) mg/LFEU Sodium (136-148) mmol/L Potassium (3.5-5.1) mmol/L Chloride (98-107) mmol/L Carbon Dioxide (21.0-32.0) mmol/L BUN (7.0-18.0) mg/dL Creatinine (0.8-1.3) mg/dL Est Cr Clr Drug Dosing mL/min Estimated GFR (MDRD) ml/min Glucose (74-106) mg/dL POC Glucose 202 H (60-110) mg/dL Calcium (8.5-10.1) mg/dL Total Bilirubin (0.2-1.0) mg/dL AST (15-37) IU/L ALT (14-63) IU/L Alkaline Phosphatase (46-116) U/L Troponin I (0.000-0.056) ng/mL Total Protein (6.4-8.2) g/dL Albumin (3.4-5.0) g/dL Globulin (2.0-3.5) g/dL Albumin/Globulin Ratio (1.3-2.8) Lipase (73-393) U/L Urine Color Urine Appearance Urine pH (5.0-8.0) Ur Specific [place] (1.001-1.035) Urine Protein (NEGATIVE) mg/dL Urine Glucose (UA) (NEGATIVE) mg/dL Urine Ketones (NEGATIVE) mg/dL Urine Occult Blood (NEGATIVE) Urine Nitrite (NEGATIVE) Urine Bilirubin (NEGATIVE) Urine Urobilinogen (<2.0) EU/dL Ur Leukocyte Esterase (NEGATIVE) Urine RBC (0-2/HPF) Urine WBC (0-5/HPF) Ur Epithelial Cells (NONE-FEW) Urine Bacteria (NEGATIVE) Urine Mucus (NONE-MOD) Blood Type Antibody Screen Crossmatch 10/06/17 Range/Units 08:15 WBC (4.0-11.0) K/uL RBC (4.50-5.90) M/uL Hgb (13.0-17.0) g/dL Hct (38.0-50.0) % MCV (80.0-98.0) fL MCH (27.0-32.0) pg MCHC (31.0-37.0) g/dL RDW Std Deviation (28.0-62.0) fl RDW Coeff of [place] (11.0-15.0) % Plt Count (150-400) K/uL MPV (7.40-12.00) fL Neut % (Auto) (48.0-80.0) % Lymph % (Auto) (16.0-40.0) % [place] % (Auto) (0.0-15.0) % Eos % (Auto) (0.0-7.0) % Baso % (Auto) (0.0-1.5) % Neut # (Auto) (1.4-5.7) K/uL Lymph # (Auto) (0.6-2.4) K/uL [place] # (Auto) (0.0-0.8) K/uL Eos # (Auto) (0.0-0.7) K/uL Baso # (Auto) (0.0-0.1) K/uL Nucleated RBC % /100WBC Nucleated RBCs # K/uL D-Dimer, Quantitative (0.0-0.52) mg/LFEU Sodium (136-148) mmol/L Potassium (3.5-5.1) mmol/L Chloride (98-107) mmol/L Carbon Dioxide (21.0-32.0) mmol/L BUN (7.0-18.0) mg/dL Creatinine (0.8-1.3) mg/dL Est Cr Clr Drug Dosing mL/min Estimated GFR (MDRD) ml/min Glucose (74-106) mg/dL POC Glucose (60-110) mg/dL Calcium (8.5-10.1) mg/dL Total Bilirubin (0.2-1.0) mg/dL AST (15-37) IU/L ALT (14-63) IU/L Alkaline Phosphatase (46-116) U/L Troponin I < 0.050 (0.000-0.056) ng/mL Total Protein (6.4-8.2) g/dL Albumin (3.4-5.0) g/dL Globulin (2.0-3.5) g/dL Albumin/Globulin Ratio (1.3-2.8) Lipase (73-393) U/L Urine Color Urine Appearance Urine pH (5.0-8.0) Ur Specific [place] (1.001-1.035) Urine Protein (NEGATIVE) mg/dL Urine Glucose (UA) (NEGATIVE) mg/dL Urine Ketones (NEGATIVE) mg/dL Urine Occult Blood (NEGATIVE) Urine Nitrite (NEGATIVE) Urine Bilirubin (NEGATIVE) Urine Urobilinogen (<2.0) EU/dL Ur Leukocyte Esterase (NEGATIVE) Urine RBC (0-2/HPF) Urine WBC (0-5/HPF) Ur Epithelial Cells (NONE-FEW) Urine Bacteria (NEGATIVE) Urine Mucus (NONE-MOD) Blood Type Antibody Screen Crossmatch Result Diagrams: 10/06/17 05:50 10/06/17 02:11 Problem List Initiated/Reviewed/Updated: Yes Orders Last 24hrs: Active Orders 24 hr Category Date Time Status Patient Status [ADT] Stat ADT 10/05/17 21:39 Active Blood Glucose Check, Bedside [RC] TIDMEALS Care 10/06/17 00:00 Active Orthostatic Vital Signs [RC] ASDIRECTED Care 10/05/17 21:38 Active Oxygen Therapy [RC] PRN Care 10/06/17 00:00 Active VTE/DVT Education [RC] PER UNIT ROUTINE Care 10/06/17 00:00 Active Vital Signs [RC] Q4H Care 10/06/17 00:00 Active [employer] Diet [DIET] Diet 10/06/17 Breakfast Active Chest 2V [CR] Stat Exams 10/05/17 19:56 Taken CULTURE SPUTUM + SMEAR [RM] Stat Lab 10/05/17 20:04 Ordered Hemoccult [OCCULT BLOOD DIAGNOSTIC] [OP] Routine Lab 10/06/17 09:10 Ordered IRON/TIBC [CHEM] Routine Lab 10/06/17 09:07 Ordered RETICULOCYTE COUNT [HEME] Routine Lab 10/06/17 09:07 Ordered UA W/MICROSCOPIC [URIN] Routine Lab 10/06/17 01:04 Ordered Acetaminophen [Tylenol] Med 10/06/17 03:26 Active 650 mg PO Q4H PRN Insulin Aspart [NovoLOG] Med 10/06/17 07:30 Active See Protocol SUBCUT TIDAC Ondansetron [Zofran ODT] Med 10/06/17 00:00 Active 4 mg PO Q4H PRN Sodium Chloride 0.9% [Normal Saline] 1,000 ml Med 10/06/17 03:30 Active IV ASDIRECTED Sodium Chloride 0.9% [Normal Saline] 1,000 ml Med 10/06/17 23:56 Active IV ONETIME Sequential Compression Device [OM.PC] Per Unit Routine Oth 10/06/17 00:01 Ordered Transfuse Red Blood Cells [COMM] Routine Oth 10/05/17 23:59 Ordered Medication Orders Acetaminophen (Tylenol) 650 mg PO Q4H PRN PRN Reason: Pain Last Admin: 10/06/17 04:20 Dose: 650 mg Sodium Chloride (Normal Saline) 1,000 mls @ 1,000 mls/hr IV ONETIME ONE Stop: 10/07/17 00:55 Last Admin: 10/06/17 00:59 Dose: 1,000 mls/hr Sodium Chloride (Normal Saline) 1,000 mls @ 150 mls/hr IV ASDIRECTED [place] Last Admin: 10/06/17 04:57 Dose: 150 mls/hr Insulin Aspart (Novolog) 0 unit SUBCUT TIDAC [place]; Protocol Last Admin: 10/06/17 07:49 Dose: 4 units Ondansetron HCl (Zofran Odt) 4 mg PO Q4H PRN PRN Reason: nausea, able to take PO Assessment/Plan Comment:: Assessment: #1. Pleuritic Chest pain - ACS Rule out #2. Normocytic anemia #3. Leukocytosis #4. D-Dimer elevated #5. EVONNE #6. Hx of T2DM, HLD, Latent TB, Pancreatic mass Plan: #1. Admit to the floor for observation. Full code. Vital signs per floor. Telemetry #2. SCD for DVT prophylaxis given anemia. Obtain hemoccult. Sliding scale for insulin. #3. Troponin q6h x3 - negative x3 at the time of this note #4. D-Dimer was obtained at the time of presentation for pleuritic chest pain, tachycardia. It is elevated however the patient this morning is asymptomatic not giving any signs of a possible PE. After discussing this with the attending , we have agreed not to obtain a CT Angiography for possible pulmonary embolism. His chest pain this morning is reproducible as I palpate the right side of his back, and taking a deep breath causes no pain. Vital signs are also stable. #5. 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 We'll obtain these records from the hospital in [place] to clarify. #6. He has an appointment on 10/21 with oncology in [place] for this workup for pancreatic mass.
--- NOTE | 2017-10-06 10:45 | CR ---
EXAM DATE: 10/05/17 PATIENT'S AGE: 52 Patient: DAVE FISHER Facility: [place], [place] Site . Site : [id number] Study: XRay Chest [id number]/11/2018 8:30:33 PM Ordering Physician: Doctor Perez Final Report: INDICATION: chest pain, cough CHEST, PA AND LATERAL Upright PA and lateral radiographs of the chest were performed. Comparison: 09/25/2017. The lungs appear clear and there are no pleural effusions. Heart size and pulmonary vasculature appear normal. Visualized bones show no significant findings. IMPRESSION: No acute intrathoracic abnormality identified. JOSE RAMON REVELES MD [employer] Dictated by: Bandar Reveles MD @ 10/05/2017 20:42:29 (Electronic Signature) Report Signed by Proxy. [facility]
[2017-10-06] MEDS ORDERED: Sodium Chloride 0.9% 1,000 ML IV ONE (23:56)
--- NOTE | 2017-10-07 11:50 | PCM.DCSUM1 ---
Discharge Summary - Hospital Course Free Text/Narrative:: Admission date: [facility] Initial Comments: Admission date: 10/05/2017 Discharge date: 10/06/2017 Admission diagnosis: #1. Pleuritic chest pain - ACS rule out #2. Normocytic anemia #3. leukocytosis #4. Elevated D-dimer #5. EVONNE #6. Hx of Pancreatic mass, T2DM, Latent TB Discharge diagnosis: #1. Pleuritic chest pain - ACS ruled out #2. Normocytic anemia - s/p 1 unit PRBC #3. leukocytosis #4. Elevated D-dimer #5. EVONNE #6. Hx of Pancreatic mass, T2DM, Latent TB #7. Iron deficiency Hospital course: 52M with a hx as above with a new found pancreatic mass incidentally when hospitalized last month in [place] presented with a cc of pleuritic chest pain. He was admitted for observation, was given 1 unit PRBC given symptomatic anemia. Hemoglobin was 8.7 on admission, up to 9.0 after the unit. His troponins were negative x3. No events on telemetry. His chest pain resolved when I evaluated him in the morning. His daughter told me that she received a call from her doctor in [place] advising that his sputum culture from his last hospital showed a fungus growing and that she should see a casework manager. I called the labratory of the hospital he was at and they indicated that his sputum culture did not show any fungus growing. 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 Given the unknown significance of the culture, I will hold off on referring out for now. I advised the daughter to call me if she finds out other information that I'm unaware of. He was asymptomatic from a respiratory standpoint. He is to see oncology in [place] later this month for workup on this new found pancreatic mass. He will f/u with me in clinic primarily for coordination of care, chronic issues. I will follow up to see if there is any new information in regards to this sputum culture that I was unable to obtain at the time. Given his iron deficiency, I did start him on ferrous sulfate 325mg PO Daily. - Discharge Data Discharge Date: 10/06/17 Discharge Disposition: Admitted As Inpatient 64 Condition: Stable - Patient Instructions Diet: Regular Diet as Tolerated Activity: As Tolerated Driving: May Drive Today Notify Provider of: Fever, Increased Pain, Swelling and Redness, Drainage, Nausea and/or Vomiting - Discharge Plan Prescriptions/Med Rec: Ferrous Sulfate 325 mg PO DAILY 30 Days #30 tablet Home Medications: Home Meds Albuterol [Ventolin HFA] 2 puff IH Q4H 09/25/17 [History] Furosemide 40 mg PO BID 09/25/17 [History] Insulin Detemir [Levemir] 30 unit SUBCUT BEDTIME 09/25/17 [History] Insulin Lispro [Humalog Kwikpen U-100] 8 units SQ TIDMEALS 09/25/17 [History] Isoniazid 300 mg PO DAILY 09/25/17 [History] Pantoprazole Sodium 40 mg PO BID 09/25/17 [History] Pyridoxine HCl [Vitamin B-6] 25 mg PO DAILY 09/25/17 [History] Sucralfate 1 gm PO QID 09/25/17 [History] atorvaSTATin [Lipitor] 40 mg PO DAILY 09/25/17 [History] metFORMIN [Glucophage] 850 mg PO TID 09/25/17 [History] Ferrous Sulfate 325 mg PO DAILY 30 Days #30 tablet 10/06/17 [Rx] Patient Handouts: Anemia, Ethinyl Estradiol; Norethindrone Acetate; Ferrous fumarate tablets or capsules Referrals: Elton Lockwood MD [Resident] - 10/13/17 1:30 pm - Discharge Summary/Plan Comment Discharge Summary/Plan Comment: Admission date: 10/05/2017 Discharge date: 10/06/2017 Admission diagnosis: #1. Pleuritic chest pain - ACS rule out #2. Normocytic anemia #3. leukocytosis #4. Elevated D-dimer #5. EVONNE #6. Hx of Pancreatic mass, T2DM, Latent TB Discharge diagnosis: #1. Pleuritic chest pain - ACS ruled out #2. Normocytic anemia - s/p 1 unit PRBC #3. leukocytosis #4. Elevated D-dimer #5. EVONNE #6. Hx of Pancreatic mass, T2DM, Latent TB #7. Iron deficiency Hospital course: 52M with a hx as above with a new found pancreatic mass incidentally when hospitalized last month in [place] presented with a cc of pleuritic chest pain. He was admitted for observation, was given 1 unit PRBC given symptomatic anemia. Hemoglobin was 8.7 on admission, up to 9.0 after the unit. His troponins were negative x3. No events on telemetry. His chest pain resolved when I evaluated him in the morning. His daughter told me that she received a call from her doctor in [place] advising that his sputum culture from his last hospital showed a fungus growing and that she should see a casework manager. I called the labratory of the hospital he was at and they indicated that his sputum culture did not show any fungus growing. 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 Given the unknown significance of the culture, I will hold off on referring out for now. I advised the daughter to call me if she finds out other information that I'm unaware of. He was asymptomatic from a respiratory standpoint. He is to see oncology in [place] later this month for workup on this new found pancreatic mass. He will f/u with me in clinic primarily for coordination of care, chronic issues. I will follow up to see if there is any new information in regards to this sputum culture that I was unable to obtain at the time. Given his iron deficiency, I did start him on ferrous sulfate 325mg PO Daily. - Patient Data Vitals - Most Recent: Last Vital Signs Temp 36.8 C 10/06/17 11:59 Pulse 93 10/06/17 11:59 Resp 16 10/06/17 11:59 BP 137/78 10/06/17 11:59 Pulse Ox 95 10/06/17 11:59 Orthostatic Blood Pressure [ 125/75 Standing] Orthostatic Blood Pressure [ 131/81 Sitting] Orthostatic Blood Pressure [ 141/82 Supine] Weight - Most Recent: 69.989 kg Lab Results - Last 24 hrs: Laboratory Results - last 24 hr 10/05/17 10/06/17 Range/Units 22:10 11:29 POC Glucose 248 H (60-110) mg/dL Blood Type A POSITIVE Antibody Screen NEGATIVE Cold Antibody Screen POSITIVE Crossmatch See Detail JARED Results - Last 24 hrs: Microbiology 10/06/17 09:10 Gram Stain - Preliminary Sputum - Other Med Orders - Current: Current Medications Discontinued Medications Acetaminophen (Tylenol) 650 mg PO Q4H PRN PRN Reason: Pain Last Admin: 10/06/17 04:20 Dose: 650 mg Aspirin (Aspirin) 324 mg PO ONETIME ONE Stop: 10/05/17 19:57 Last Admin: 10/05/17 20:05 Dose: 324 mg Al Hydroxide/Mg Hydroxide 15 (ml/ Lidocaine HCl 5 ml) 0 ml PO ONETIME ONE Stop: 10/05/17 23:58 Last Admin: 10/06/17 01:13 Dose: 1 each Sodium Chloride (Normal Saline) 1,000 mls @ 1,000 mls/hr IV ONETIME ONE Stop: 10/07/17 00:55 Last Admin: 10/06/17 00:59 Dose: 1,000 mls/hr Sodium Chloride (Normal Saline) 1,000 mls @ 150 mls/hr IV ASDIRECTED [facility] Last Admin: 10/06/17 11:43 Dose: 150 mls/hr Insulin Aspart (Novolog) 0 unit SUBCUT TIDAC [facility]; Protocol Last Admin: 10/06/17 12:20 Dose: 4 units Ondansetron HCl (Zofran Odt) 4 mg PO Q4H PRN PRN Reason: nausea, able to take PO Pantoprazole Sodium (Protonix Iv) 40 mg IVPUSH NOW ONE Stop: 10/05/17 23:58 Last Admin: 10/06/17 00:56 Dose: 40 mg
== END 2017-10-06 15:15 | disposition home or self-care (01) ==
LOC: MW.ED 19:32 → MW.MS 21:39
PROVIDERS: ADMIT Internal Medicine; ATTEND Internal Medicine
DX: R07.1 Chest pain on breathing (principal); D64.9 Anemia, unspecified; D72.829 Elevated white blood cell count, unspecified; E11.9 Type 2 diabetes mellitus without complications; I11.0 Hypertensive heart disease with heart failure; I50.9 Heart failure, unspecified; N17.9 Acute kidney failure, unspecified; E78.5 Hyperlipidemia, unspecified; K21.9 Gastro-esophageal reflux disease without esophagitis; E78.00 Pure hypercholesterolemia, unspecified; J96.90 Respiratory failure, unspecified, unspecified whether with hypoxia or hypercapnia; K86.9 Disease of pancreas, unspecified; R76.11 Nonspecific reaction to tuberculin skin test without active tuberculosis; E61.1 Iron deficiency; Z79.4 Long term (current) use of insulin; Z79.899 Other long term (current) drug therapy
CPT/HCPCS: 36415; 36430; 71046; 80048; 80053; 81001; 82962; 83550; 83690; 84484; 85025; 85045; 85379; 86156; 86850; 86900; 86901; 86920; 86921; 86922; 87070; 87205; 99285; A9270; C9113; J1815; J7040; P9016

== ENCOUNTER 2017-12-21 17:41 | Emergency (ER) | payer MEDICAID ==
[2017-12-21] MEDS ORDERED: Sodium Chloride 0.9% 10 ML Syringe FLUSH PRN (18:09)
[2017-12-21] MEDS ORDERED: Sodium Chloride 0.9% 2.5 ML Syringe FLUSH PRN (18:09)
--- NOTE | 2017-12-21 18:09 | EDM.PDOC ---
ED HPI GENERAL MEDICAL PROBLEM - General Chief Complaint: Gastrointestinal Problem Stated Complaint: NAUSEA AND VOMITING Time Seen by Provider: 12/21/17 18:03 Source of Information: Reports: Patient History Limitations: Reports: No Limitations - History of Present Illness INITIAL COMMENTS - FREE TEXT/NARRATIVE: HISTORY AND PHYSICAL: []52-year-old male presenting with nausea vomiting History of Present Illness: []Nausea vomiting several days History diarrhea today Shoulder pain today off and on with vomiting The 16th of this month patient had abdominal surgery in [place] for a cancerous tumor, spleenectomy, and tail of the pancreas removed biopsies of his liver. Brenton are in place and it abdomen. states patient has been running 55-60 with his blood sugars has been nauseous for the last week has been having episodes of vomiting for the last 4-5 days. Patient is a diabetic Review of Systems: As per history of present illness and below otherwise all systems reviewed and negative. Past medical history: As per history of present illness and as reviewed below otherwise noncontributory. Surgical history: As per history of present illness and as reviewed below otherwise noncontributory. Social history: No reported history of drug or alcohol abuse. Family history: As per history of present illness and as reviewed below otherwise noncontributory. Physical exam: Alert and oriented gentleman very pleasant answering questions appropriately in full sentences with no shortness of breath noted. HEENT: Atraumatic, normocehpalic, pupils reactive, negative for conjunctival pallor or scleral icterus, mucous membranes moist, throat clear, neck supple, nontender, trachea midline. Oral mucosa dry Lungs: Clear to auscultation, breath sounds equal bilaterally, chest non tender. Heart: S1S2, regular, negative for clicks, rubs, or JVD. Abdomen: Soft, nondistended,mild tenderness. Negative for masses or hepatossplenmegaly. Negative for costovertebral tenderness. Pelvis: Stable nontender. Genitourinary: Deferred. Rectal: Deferred Extremities: Atraumatic, negative for cords or calf pain. Neurovascular unremarkable. Neuro: Awake, alert, oriented. Cranial nerves II through XII unremarkable. Cerebellum unremarkable. Motor and sensory unremarkable throughout. Exam nonfocal. Dr. Jacobo has kindly examined the patient and discussed his case with him I have discussed with the patient and his that this CT scan showing findings that are suspicious for liver abscess there was a small amount of a pneumoperitoneum in the upper abdomen consistent with his recent surgery Fluid and gas collection near the distal margin the pancreas measuring 5 x 3cm. Talk to [facility] in [place] patients physician Dr. Garvin, is being covered by [facility] who will accept the patient. There is a delay in transfer status due to lack of ground ambulance available through ambulance service. [facility] was contacted and they are unable to transport per ground. We'll transport patient for air related to lack of services available at this time. Diagnostics: []cbc cmp amylase lipase,ua urine culture troponin Therapeutics: []iv saline zofran Impression: []Liver abcess Plan: []transfer to [facility], [place] for continuation of care . Liver abscess/ oncology surgeon available at this facility. Definitive disposition and diagnosis as appropriate pending reevaluation and review of above. Onset: Sudden Duration: Day(s): (4-5) Location: Reports: Abdomen Quality: Reports: Ache Severity: Moderate Improves with: Reports: None Worsens with: Reports: None Associated Symptoms: Reports: Loss of Appetite, Nausea/Vomiting - Related Data Allergies Allergy/AdvReac Type Severity Reaction Status Date / Time No Known Allergies Allergy Verified 12/21/17 17:58 Home Meds: Home Meds Albuterol [Ventolin HFA] 2 puff IH Q4H 09/25/17 [History] Furosemide 40 mg PO BID 09/25/17 [History] Insulin Detemir [Levemir] 30 unit SUBCUT BEDTIME 09/25/17 [History] Insulin Lispro [Humalog Kwikpen U-100] 8 units SQ TIDMEALS 09/25/17 [History] Pantoprazole Sodium 40 mg PO BID 09/25/17 [History] atorvaSTATin [Lipitor] 40 mg PO DAILY 09/25/17 [History] metFORMIN [Glucophage] 850 mg PO TID 09/25/17 [History] FLUoxetine [PROzac] 20 mg PO DAILY 12/21/17 [History] Gabapentin [Neurontin] 300 mg PO BID 12/21/17 [History] Spironolactone 50 mg PO DAILY 12/21/17 [History] Past Medical History Cardiovascular History: Reports: High Cholesterol, Hypertension, Other (See Below) Other Cardiovascular History: CHF Respiratory History: Reports: Other (See Below) Other Respiratory History: recent respiratory failure Gastrointestinal History: Reports: GERD Other Gastrointestinal History: has a pancreatic mass Endocrine/Metabolic History: Reports: Diabetes, Type II - Infectious Disease History Infectious Disease History: Reports: Chicken Pox - Past Surgical History GI Surgical History: Reports: Other (See Below) Other GI Surgeries/Procedures: splenectomy, pancreatic surgery, liver biopsy Social & Family History - Family History Family Medical History: Noncontributory - Tobacco Use Smoking Status *Q: Never Smoker - Caffeine Use Caffeine Use: Reports: Coffee - Recreational Drug Use Recreational Drug Use: No ED ROS GENERAL - Review of Systems Review Of Systems: ROS reveals no pertinent complaints other than HPI. ED EXAM, GI/ABD - Physical Exam Exam: See Below (see dictation) Course - Vital Signs Last Recorded V/S: Last Vital Signs Temp 36.6 C 12/21/17 20:02 Pulse 88 12/21/17 20:02 Resp 18 12/21/17 20:02 BP 146/87 H 12/21/17 20:02 Pulse Ox 94 L 12/21/17 20:02 - Orders/Labs/Meds Orders: Active Orders 24 hr Category Date Time Status Blood Glucose Check, Bedside [RC] ONETIME Care 12/21/17 18:10 Active Abdomen Pelvis wo Cont [CT] Stat Exams 12/21/17 18:43 Taken CULTURE BLOOD [BC] Stat Lab 12/21/17 18:53 Received CULTURE BLOOD [BC] Stat Lab 12/21/17 19:19 Results CULTURE URINE [RM] Stat Lab 12/21/17 18:30 Ordered UA W/MICROSCOPIC [URIN] Stat Lab 12/21/17 18:30 Ordered Sodium Chloride 0.9% [Saline Flush] Med 12/21/17 18:09 Active 10 ml FLUSH ASDIRECTED PRN Sodium Chloride 0.9% [Saline Flush] Med 12/21/17 18:09 Active 2.5 ml FLUSH ASDIRECTED PRN Blood Culture x2 Reflex Set [OM.PC] Stat Oth 12/21/17 18:45 Ordered Saline Lock Insert [OM.PC] Stat Oth 12/21/17 18:09 Ordered Medication Orders Sodium Chloride (Saline Flush) 10 ml FLUSH ASDIRECTED PRN PRN Reason: Keep Vein Open Last Admin: 12/21/17 18:10 Dose: 10 ml Sodium Chloride (Saline Flush) 2.5 ml FLUSH ASDIRECTED PRN PRN Reason: Keep Vein Open Last Admin: 12/21/17 18:11 Dose: 2.5 ml Labs: Laboratory Tests 12/21/17 12/21/17 12/21/17 Range/Units 18:10 18:10 18:30 WBC 15.49 H (4.0-11.0) K/uL RBC 2.91 L (4.50-5.90) M/uL Hgb 8.6 L (13.0-17.0) g/dL Hct 25.6 L (38.0-50.0) % MCV 88.0 (80.0-98.0) fL MCH 29.6 (27.0-32.0) pg MCHC 33.6 (31.0-37.0) g/dL RDW Std Deviation 46.9 (28.0-62.0) fl RDW Coeff of Randee 15 (11.0-15.0) % Plt Count 928 H (150-400) K/uL MPV 9.40 (7.40-12.00) fL Neut % (Auto) 87.3 H (48.0-80.0) % Lymph % (Auto) 7.5 L (16.0-40.0) % [place] % (Auto) 4.8 (0.0-15.0) % Eos % (Auto) 0.3 (0.0-7.0) % Baso % (Auto) 0.1 (0.0-1.5) % Neut # (Auto) 13.5 H (1.4-5.7) K/uL Lymph # (Auto) 1.2 (0.6-2.4) K/uL [place] # (Auto) 0.8 (0.0-0.8) K/uL Eos # (Auto) 0.0 (0.0-0.7) K/uL Baso # (Auto) 0.0 (0.0-0.1) K/uL Nucleated RBC % 0.0 /100WBC Nucleated RBCs # 0 K/uL Lactate (0.20-2.00) mmol/L Sodium 134 L (136-148) mmol/L Potassium 4.6 (3.5-5.1) mmol/L Chloride 97 L (98-107) mmol/L Carbon Dioxide 29.6 (21.0-32.0) mmol/L BUN 38 H (7.0-18.0) mg/dL Creatinine 1.9 H (0.8-1.3) mg/dL Est Cr Clr Drug Dosing 37.22 mL/min Estimated GFR (MDRD) 37.1 ml/min Glucose 96 (74-106) mg/dL Calcium 8.7 (8.5-10.1) mg/dL Total Bilirubin 0.1 L (0.2-1.0) mg/dL AST 18 (15-37) IU/L ALT 39 (14-63) IU/L Alkaline Phosphatase 125 H (46-116) U/L Troponin I < 0.050 (0.000-0.056) ng/mL Total Protein 7.8 (6.4-8.2) g/dL Albumin 2.7 L (3.4-5.0) g/dL Globulin 5.1 H (2.0-3.5) g/dL Albumin/Globulin Ratio 0.5 L (1.3-2.8) Amylase 213 H (25-115) U/L Lipase 215 (73-393) U/L Urine Color YELLOW Urine Appearance CLEAR Urine pH 5.5 (5.0-8.0) Ur Specific [place] 1.010 (1.001-1.035) Urine Protein NEGATIVE (NEGATIVE) mg/dL Urine Glucose (UA) NEGATIVE (NEGATIVE) mg/dL Urine Ketones NEGATIVE (NEGATIVE) mg/dL Urine Occult Blood NEGATIVE (NEGATIVE) Urine Nitrite NEGATIVE (NEGATIVE) Urine Bilirubin NEGATIVE (NEGATIVE) Urine Urobilinogen 0.2 (<2.0) EU/dL Ur Leukocyte Esterase NEGATIVE (NEGATIVE) Urine RBC 0-1 (0-2/HPF) Urine WBC 0-1 (0-5/HPF) Ur Epithelial Cells RARE (NONE-FEW) Urine Bacteria RARE (NEGATIVE) 12/21/17 Range/Units 18:53 WBC (4.0-11.0) K/uL RBC (4.50-5.90) M/uL Hgb (13.0-17.0) g/dL Hct (38.0-50.0) % MCV (80.0-98.0) fL MCH (27.0-32.0) pg MCHC (31.0-37.0) g/dL RDW Std Deviation (28.0-62.0) fl RDW Coeff of Randee (11.0-15.0) % Plt Count (150-400) K/uL MPV (7.40-12.00) fL Neut % (Auto) (48.0-80.0) % Lymph % (Auto) (16.0-40.0) % [place] % (Auto) (0.0-15.0) % Eos % (Auto) (0.0-7.0) % Baso % (Auto) (0.0-1.5) % Neut # (Auto) (1.4-5.7) K/uL Lymph # (Auto) (0.6-2.4) K/uL [place] # (Auto) (0.0-0.8) K/uL Eos # (Auto) (0.0-0.7) K/uL Baso # (Auto) (0.0-0.1) K/uL Nucleated RBC % /100WBC Nucleated RBCs # K/uL Lactate 1.5 (0.20-2.00) mmol/L Sodium (136-148) mmol/L Potassium (3.5-5.1) mmol/L Chloride (98-107) mmol/L Carbon Dioxide (21.0-32.0) mmol/L BUN (7.0-18.0) mg/dL Creatinine (0.8-1.3) mg/dL Est Cr Clr Drug Dosing mL/min Estimated GFR (MDRD) ml/min Glucose (74-106) mg/dL Calcium (8.5-10.1) mg/dL Total Bilirubin (0.2-1.0) mg/dL AST (15-37) IU/L ALT (14-63) IU/L Alkaline Phosphatase (46-116) U/L Troponin I (0.000-0.056) ng/mL Total Protein (6.4-8.2) g/dL Albumin (3.4-5.0) g/dL Globulin (2.0-3.5) g/dL Albumin/Globulin Ratio (1.3-2.8) Amylase (25-115) U/L Lipase (73-393) U/L Urine Color Urine Appearance Urine pH (5.0-8.0) Ur Specific [place] (1.001-1.035) Urine Protein (NEGATIVE) mg/dL Urine Glucose (UA) (NEGATIVE) mg/dL Urine Ketones (NEGATIVE) mg/dL Urine Occult Blood (NEGATIVE) Urine Nitrite (NEGATIVE) Urine Bilirubin (NEGATIVE) Urine Urobilinogen (<2.0) EU/dL Ur Leukocyte Esterase (NEGATIVE) Urine RBC (0-2/HPF) Urine WBC (0-5/HPF) Ur Epithelial Cells (NONE-FEW) Urine Bacteria (NEGATIVE) Meds: Medications Generic Name Dose Route Start Last Admin Trade Name Freq PRN Reason Stop Dose Admin Sodium Chloride 10 ml 12/21/17 18:09 12/21/17 18:10 Saline Flush FLUSH 10 ml ASDIRECTED PRN Administration Keep Vein Open Sodium Chloride 2.5 ml 12/21/17 18:09 12/21/17 18:11 Saline Flush FLUSH 2.5 ml ASDIRECTED PRN Administration Keep Vein Open Discontinued Medications Generic Name Dose Route Start Last Admin Trade Name Freq PRN Reason Stop Dose Admin Sodium Chloride 1,000 mls @ 999 mls/hr 12/21/17 18:11 12/21/17 18:20 Normal Saline IV 12/21/17 19:11 999 mls/hr STAT ONE Administration Sodium Chloride 1,000 mls @ 999 mls/hr 12/21/17 19:17 12/21/17 19:47 Normal Saline IV 12/21/17 20:17 999 mls/hr STAT ONE Administration Piperacillin Sod/Tazobactam 50 mls @ 100 mls/hr 12/21/17 19:35 12/21/17 19:46 Sod 3.375 gm/ Sodium Chloride IV 12/21/17 20:04 100 mls/hr ONETIME ONE Administration Vancomycin HCl 1 gm/ Sodium 250 mls @ 250 mls/hr 12/21/17 19:51 12/21/17 20: 31 Chloride IV 12/21/17 20:50 250 mls/hr ONETIME ONE Administration Ondansetron HCl 4 mg 12/21/17 18:11 12/21/17 18:20 Zofran IVPUSH 12/21/17 18:12 4 mg ONETIME ONE Administration Departure - Departure Time of Disposition: 21:41 Disposition: DC/Tfer to Acute Hospital 02 Condition: Fair Clinical Impression: Liver abscess - Discharge Information *PRESCRIPTION DRUG MONITORING PROGRAM REVIEWED*: Not Applicable *COPY OF PRESCRIPTION DRUG MONITORING REPORT IN PATIENT LUIS: Not Applicable Referrals: Dora Zarate MD [Primary Care Provider] - Forms: ED Department Discharge Additional Instructions: Copies of completed forms EMTALA forms have been completed the patient will be transferred via [employer] flight - My Orders Last 24 Hours: My Active Orders 12/21/17 18:09 Sodium Chloride 0.9% [Saline Flush] 10 ml FLUSH ASDIRECTED PRN Sodium Chloride 0.9% [Saline Flush] 2.5 ml FLUSH ASDIRECTED PRN Saline Lock Insert [OM.PC] Stat 12/21/17 18:10 Blood Glucose Check, Bedside [RC] ONETIME 12/21/17 18:30 CULTURE URINE [RM] Stat UA W/MICROSCOPIC [URIN] Stat 12/21/17 18:43 Abdomen Pelvis wo Cont [CT] Stat 12/21/17 18:45 Blood Culture x2 Reflex Set [OM.PC] Stat 12/21/17 18:53 CULTURE BLOOD [BC] Stat 12/21/17 19:19 CULTURE BLOOD [BC] Stat - Assessment/Plan Last 24 Hours: My Active Orders 12/21/17 18:09 Sodium Chloride 0.9% [Saline Flush] 10 ml FLUSH ASDIRECTED PRN Sodium Chloride 0.9% [Saline Flush] 2.5 ml FLUSH ASDIRECTED PRN Saline Lock Insert [OM.PC] Stat 12/21/17 18:10 Blood Glucose Check, Bedside [RC] ONETIME 12/21/17 18:30 CULTURE URINE [RM] Stat UA W/MICROSCOPIC [URIN] Stat 12/21/17 18:43 Abdomen Pelvis wo Cont [CT] Stat 12/21/17 18:45 Blood Culture x2 Reflex Set [OM.PC] Stat 12/21/17 18:53 CULTURE BLOOD [BC] Stat 12/21/17 19:19 CULTURE BLOOD [BC] Stat
[2017-12-21] MEDS ORDERED: Ondansetron 4 MG/2 ML SDV IVPUSH ONE (18:11)
[2017-12-21] MEDS ORDERED: Sodium Chloride 0.9% 1,000 ML IV ONE ×2 (18:11→19:17)
[2017-12-21 18:56] LABS: CHLORIDE,CL 97 mmol/L (98-107); SODIUM,NA 134 mmol/L (136-148)
[2017-12-21] MEDS ORDERED: Piperacillin/Tazobactam 3.375 GM in Sodium Chloride 0.9% 50 ML IV ONE (19:35)
--- NOTE | 2017-12-22 10:18 | CT ---
EXAM DATE: 12/21/17 PATIENT'S AGE: 52 Patient: DAVE FISHER Facility: [place], [place] Site . Site : [id number] Study: CT Abdomen/Pelvis [id number]/27/2018 7:18:57 PM Ordering Physician: Doctor Perez Final Report: INDICATION: Nausea, vomiting for 1 week TECHNIQUE: CT Abdomen and pelvis without i.v. contrast. Coronal and sagittal reformats were obtained. CONTRAST: None COMPARISON: None FINDINGS: Lower chest: Unremarkable. Mild anemia is present with the cardiac chambers appearing lucent with respect to the myocardium. Moderate atherosclerotic calcifications are noted in the coronary arteries. Liver: There is a low-density lesion inferior right lobe of the liver measuring 1.4 cm. It is incompletely assessed without intravenous contrast. In the liver dome, there is a low-density lesion containing mottled gas measuring 3 x 2.7 cm. Spleen: Previous splenectomy noted with no significant intraabdominal splenosis seen. Pancreas: The patient is status post distal pancreatectomy with a fluid and gas collection near the distal margin of the pancreas measuring 5 x 3 cm. Gallbladder: Unremarkable. Kidney: Unremarkable. No kidney or ureteral stones or obstruction seen. Adrenal: Unremarkable. Bowel: Unremarkable. The appendix is normal in appearance and size. Vascular: Unremarkable. Lymph: Unremarkable. Peritoneum: Mild edema is present in the gastrohepatic ligament and retroperitoneum of the upper abdomen. A small amount of pneumoperitoneum is seen in the upper abdomen. Midline skin tejinder are present. No significant ascites is noted. Pelvis: Unremarkable. Soft tissue: Ill-defined soft tissue is seen in the retroareolar complexes of the chest bilaterally and most likely due to gynecomastia. Bone: Unremarkable for age. IMPRESSIONS: 1. In the liver dome, there is a low-density lesion containing mottled gas measuring 3 x 2.7 cm. Findings are suspicious for liver abscess. 2. A small amount of pneumoperitoneum is seen in the upper abdomen. Midline skin tejinder are present. These findings likely due to recent surgery and correlation with surgical history recommended. 3. The patient is status post distal pancreatectomy with a fluid and gas collection near the distal margin of the pancreas measuring 5 x 3 cm. A copy of this report was faxed to the ordering physician at approximately 7:47 PM. Dictated by Amado Raman MD @ 12/21/2017 7:47:21 PM Please note that all CT scans at this facility use dose modulation, iterative reconstruction, and/or weight-based dosing when appropriate to reduce radiation dose to as low as reasonably achievable. Dictated by: Amado Raman MD @ 12/21/2017 19:47:40 (Electronic Signature) Report Signed by Proxy. [facility]
== END 2017-12-21 22:08 ==
LOC: MW.ED 17:41
DX: K75.0 Abscess of liver (principal); E11.9 Type 2 diabetes mellitus without complications; I11.0 Hypertensive heart disease with heart failure; I50.9 Heart failure, unspecified; Z79.4 Long term (current) use of insulin; Z79.899 Other long term (current) drug therapy; Z90.81 Acquired absence of spleen
CPT/HCPCS: 36415; 74176; 80053; 81001; 82150; 82962; 83605; 83690; 84484; 85025; 87040; 87086; 96361; 96365; 96367; 96375; 99285; J2405; J2543; J3370; J7040; J7050